=== PATIENT | male | born 1960 | race Caucasian/White ===

== ENCOUNTER 2018-12-23 18:02 | Emergency (ER) | payer BC ==
[~2018-12-23] VITALS: Ht 170.2 cm; Wt 65.8 kg
[~2018-12-23 18:02] MED LIST: NORCO 5-325 TA1 EACH PO; NORFLEX100 MG PO; SYNTHROID100 MCG PO; THYROID65 MG PO; VITAMIN B-1100 M1 PO; VITAMIN D1000 UNI1 PO; ZOFRAN 4 MG ORAL4 M1 DIS
[2018-12-23] MEDS ORDERED: VITAMIN B-12500 MCG PO (18:16)
[2018-12-23 18:48] VITALS: BP 95/67
== END 2018-12-23 18:50 | disposition home or self-care (01) ==
LOC: M.ERS 18:02
DX: S51.812A Laceration without foreign body of left forearm, initial encounter (principal); F17.200 Nicotine dependence, unspecified, uncomplicated; K21.9 Gastro-esophageal reflux disease without esophagitis; W26.8XXA Contact with other sharp object(s), not elsewhere classified, initial encounter; Y92.89 Other specified places as the place of occurrence of the external cause; Y99.0 Civilian activity done for income or pay; Y99.8 Other external cause status

== ENCOUNTER → 2020-02-07 | Outpatient (CLI) | payer BC ==
[~2020-02-07] MED LIST changes: +VITAMIN B-12500 MCG PO
== END ==
LOC: M.RAD 16:29
PROVIDERS: ATTEND Internal Medicine
DX: M19.042 Primary osteoarthritis, left hand (principal); M19.041 Primary osteoarthritis, right hand; M79.89 Other specified soft tissue disorders; M19.90 Unspecified osteoarthritis, unspecified site; E03.9 Hypothyroidism, unspecified; F32.5 Major depressive disorder, single episode, in full remission

== ENCOUNTER 2021-05-26 10:58 | Observation (INO) | payer OTHER ==
[~2021-05-26] VITALS: Ht 170.2 cm; Wt 65.8 kg
--- NOTE | ~2021-05-26 | CON ---
[address] [address] CONSULTATION Name: DAVID ROSARIO Room: [address] [place]#: [id number] Admission: 05/26/21 Attend Phys: Raven Barcenas Discharge: Date of : 58 Report #: [id number] THIS REPORT FOR: cc: Warner Vazquez MD, Meng MD Khosla, Parveen K. MD ~ DATE OF CONSULTATION: 05/26/2021 HISTORY OF PRESENT ILLNESS: A 61-year-old male patient who was evaluated by me for an episode, which he said had yesterday. He said he was numb on the right side, even the right ear was numb. The whole right side was numb. Some facial droop was noticed. He thought he was disoriented at that time. Then, he returned back to his baseline. He does not think he had aphasia. He had another episode of disorientation some time ago. I do not think much workup was done at that time. His biggest risk factor is that he is a smoker. REVIEW OF SYSTEMS: Indicates that he has been working for long time and he said that caused a lot of stress. He took some medication long time ago, but does not take any medication at the moment. He takes Aleve for what he described as arthritis. Otherwise, 14-point review of systems was mostly unremarkable. PAST MEDICAL HISTORY: Positive for an episode of disorientation. FAMILY HISTORY: Unremarkable. SOCIAL HISTORY: He smokes about half pack a day. PHYSICAL EXAMINATION: NEUROLOGIC: The patient's examination indicates he is alert and responsive, able to follow simple and complex command. His cranial nerve examination appears unremarkable. His numbness has resolved. Neuromuscular examination is checked for strength, sensation, reflexes and tone is symmetrical. He had no objective numbness anymore. No cerebellar sign. I could not look at the fundus. There is no meningeal sign. VITAL SIGNS: Blood pressure is 135/72, respiration is 16, pulse is 56, and temperature is 97.8. LUNGS: No respiratory difficulty was noticed. SKIN: He has no edema, cyanosis or jaundice. LABORATORY DATA: White count is 6.4. GFR is 76. His cardiac examination is unremarkable. The CT angiogram was reviewed, which showed old disease. MRI does not show any acute stroke. From neurological perspective, his echocardiogram does not show any patent foramen ovale. IMPRESSION AND PLAN: He can be dismissed and [place] [address] CONSULTATION Name: DAVID ROSARIO Room: [address] A[place]ina#: [id number] Admission: 05/26/21 Attend Phys: Raven Barcenas Discharge: Date of : 58 Report #: [id number] is also assuming that he does not show any atrial fibrillation. He needs to be on aspirin and he needs to be on statin because his LDL is 100. Thank you very much for this referral. By: 1629 1913Ptamara Luna MD /mariangel
[2021-05-26 11:04] VITALS: BP 142/56
[2021-05-26 12:01] LABS: ABSOLUTE BASOPHILS 0.1 thou/uL (0.0-0.2); ABSOLUTE EOSINOPHILS 0.3 thou/uL (0.0-0.7); ABSOLUTE MONOCYTES 0.5 thou/uL (0.0-1.2); ABSOLUTE NEUTROPHILS 3.5 thou/uL (1.6-8.1); BASOPHILS 0.8 %; EOSINOPHILS 5.1 %; HEMATOCRIT 42.8 % (42.0-52.0); HEMOGLOBIN 14.7 gm/dL (14.0-18.0); LYMPHOCYTES 30.9 %; MCH 31.4 pg (26.0-34.0); MCHC 34.3 g/dL (28.0-37.0); MCV 91.5 fL (80.0-100.0); MONOCYTES 8.4 %; MPV 8.3 fl. (7.2-11.1); NUCLEATED RBCS 0 /100WBC; PLATELET COUNT* 175 thou/uL (150-400); POLYS 54.8 %; RBC 4.68 mil/uL (4.50-6.00); RDW-CV 13.9 % (10.5-14.5); WBC 6.4 thou/uL (4.0-11.0)
[2021-05-26 12:04] LABS: ANION GAP 7 mmol/L (7-16); BUN 21 mg/dL (7-18); CALCIUM 8.5 mg/dL (8.5-10.1); CHLORIDE 105 mmol/L (98-107); CO2 28 mmol/L (21-32); GLUCOSE 101 mg/dL (70-99); POTASSIUM 4.1 mmol/L (3.5-5.1); SODIUM 140 mmol/L (136-145)
[2021-05-26 12:07] LABS: APTT 27.8 Seconds (25.0-31.3); INR 1.1; PROTIME 11.5 Seconds (9.20-11.50)
[2021-05-26 12:09] LABS: ALBUMIN 3.6 g/dL (3.4-5.0); ALKALINE PHOSPHATASE 66 U/L (46-116); CHOLESTEROL 159 mg/dL (<200); HDL CHOLESTEROL 48 mg/dL (>40); LDL CHOLESTEROL 100 mg/dL (<100); SGOT 20 U/L (15-37); SGPT 23 U/L (30-65); TC:HDL 3.3 Ratio (Not establshd); TOTAL BILIRUBIN 0.5 mg/dL (<0.1-1.0); TOTAL PROTEIN 6.5 g/dL (6.4-8.2); TRIGLYCERIDE 57 mg/dL (<150); VLDL 11 mg/dL (<40)
--- NOTE | 2021-05-26 12:12 | EKG ---
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: : 1960 Requested By: Daiana Norwood Order Number: [id number] MD: Phoenix Cisneros Measurements Intervals [place] Rate: 51 P: 77 CT: 145 QRS: 88 QRSD: 143 T: 50 QT: 461 QTc: 425 Interpretive Statements Sinus rhythm Ventricular premature complex Right bundle branch block Compared to ECG 09/19/2011 20:50:33 Ventricular premature complex(es) now present Electronically Signed On 05-26-2021 12:11:55 [employer] by Phoenix Cisneros [email or web address] <ELECTRONICALLY SIGNED> By: Phoenix Cisneros MD, [facility] 05/26/21 1211 1149 1149 Phoenix Cisneros MD, [facility] /EPI
[2021-05-26 12:19] LABS: SERUM ASSESSMENT Clear
[2021-05-26 13:57] LABS: ESR (SEDRATE) 1 mm/hr (0-20)
--- NOTE | 2021-05-26 15:41 | NUR ---
MRI QUESTIONAIRRE GIVEN TO PT TO FILL OUT.
[2021-05-26 19:16] VITALS: BP 111/62
[2021-05-26 23:00] VITALS: BP 107/47
[2021-05-27 02:06] LABS: GLYCOHEMOGLOBIN (HGB A1C) 5.6 % (4.8-5.6)
[2021-05-27 04:00] VITALS: BP 108/62
[2021-05-27 08:00] VITALS: BP 103/69
[2021-05-27] MEDS ORDERED: ASA81BEC PO (08:09)
[2021-05-27] MEDS ORDERED: LIPITOR 20 MG T20 M1 PO (10:03)
[2021-05-27 11:30] VITALS: BP 103/69
[2021-05-27 11:35] VITALS: BP 103/69
== END 2021-05-27 11:43 | disposition home or self-care (01) ==
LOC: M.ERS 10:58 → M.TBA-ER 15:27
PROVIDERS: Nurse Practitioner Family; ADMIT Internal Medicine; ATTEND Internal Medicine
DX: R20.2 Paresthesia of skin (principal); Z20.822 Contact with and (suspected) exposure to COVID-19; E03.9 Hypothyroidism, unspecified; I25.10 Atherosclerotic heart disease of native coronary artery without angina pectoris; R79.1 Abnormal coagulation profile; F17.210 Nicotine dependence, cigarettes, uncomplicated; Z79.899 Other long term (current) drug therapy

== ENCOUNTER → 2021-07-24 | Outpatient (CLI) | payer OTHER ==
[~2021-07-24] MED LIST changes: +ASA81BEC PO; +LIPITOR 20 MG T20 M1 PO
== END ==
LOC: M.RAD 09:15
PROVIDERS: ATTEND Internal Medicine
DX: R03.0 Elevated blood-pressure reading, without diagnosis of hypertension (principal); Z87.891 Personal history of nicotine dependence

== ENCOUNTER → 2021-07-28 | Outpatient (CLI) | payer OTHER ==
--- NOTE | 2021-07-28 12:30 | 2DMMODE ---
[place] [address] 2 D/M-MODE ECHOCARDIOGRAM Name: DAVID ROSARIO Room: [facility]#: [id number] Admission: 07/28/21 Attend Phys: Uzair Luna, Discharge: Date of : 58 Date of Service: 07/28/21 1230 Report #: [id number] THIS REPORT FOR: cc: Warner Vazquez MD, Meng MD Liston, Michael J. MD [facility] ~ APPROVED REPORT Study performed: 07/28/2021 11:17:10 EXAM: Comprehensive 2D, Doppler, and color-flow Echocardiogram/ Bubble Study Patient Location: Out-Patient BSA: 1.75 HR: 64 bpm BP: 130/70 mmHg Other Information Study Quality: Good Indications TIA Echo Enhancing Agent Indication: Rule out Shunt Agent(s) / Amount(s) Used: Agitated Saline 10 cc 2D Dimensions IVSd: 7.39 (7-11mm) LVOT Diam: 20.69 (18-24mm) LVDd: 49.04 mm PWd: 10.22 (7-11mm) Ascending Ao: 28.56 (22-36mm) LVDs: 32.38 (25-40mm) Aortic Root: 27.79 mm Volumes Left Atrial Volume (Systole) LA ESV Index: 13.40 mL/m2 Aortic Valve AoV Peak Hilario.: 0.93 m/s AO Peak Gr.: 3.45 mmHg LVOT Max P.01 mmHg AO Mean Gr.: 2.12 mmHg LVOT Mean P.02 mmHg LVOT Max V: 0.71 m/s AO V2 VTI: 18.97 cm LVOT Mean V: 0.47 m/[place] [address] 2 D/M-MODE ECHOCARDIOGRAM Name: DAVID ROSARIO Room: [facility]#: [id number] Admission: 07/28/21 Attend Phys: Uzair Luna, Discharge: Date of : 58 Date of Service: 07/28/21 1230 Report #: [id number] GILMAR (VTI): 2.66 cm2 LVOT V1 VTI: 15.00 cm Mitral Valve E/A Ratio: 1.04 MV Decel. Time: 308.72 ms MV E Max Hilario.: 0.42 m/s MV PHT: 89.53 ms MVA (PHT): 2.46 cm2 TDI E/Lateral E': 4.67 E/Medial E': 6.00 Medial E' Hilario.: 0.07 m/s Lateral E' Hilario.: 0.09 m/s Pulmonary Valve PV Peak Hilario.: 0.66 m/s PV Peak Gr.: 1.76 mmHg Left Ventricle The left ventricle is normal size. There is left ventricular systolic dyssynergy consistent with underlying bundle branch block. Global LV systolic function is preserved. There is normal left ventricular wall thickness. Left ventricular systolic function is normal. LVEF is 50-55%. Grade I - abnormal relaxation pattern. Right Ventricle The right ventricle is normal size. The right ventricular systolic function is normal. Atria The left atrium size is normal. Injection of bubbles documented no interatrial shunt. The right atrium size is normal. Aortic Valve The aortic valve is normal in structure. No aortic regurgitation is present. There is no aortic valvular stenosis. Mitral Valve The mitral valve is normal in structure. There is no mitral valve regurgitation noted. No evidence of mitral valve stenosis. Tricuspid Valve The tricuspid valve is normal in structure. There is no tricuspid valve regurgitation noted. Pulmonic Valve The pulmonary valve is normal in structure. [place] [address] 2 D/M-MODE ECHOCARDIOGRAM Name: DAVID ROSARIO Room: [facility]#: [id number] Admission: 07/28/21 Attend Phys: Uzair Luna, Discharge: Date of : 58 Date of Service: 07/28/21 1230 Report #: [id number] valvular regurgitation. Great Vessels The aortic root is normal in size. IVC is normal in size and collapses >50% with inspiration. Pericardium There is no pericardial effusion. <Conclusion> The left ventricle is normal size. There is normal left ventricular wall thickness. Left ventricular systolic function is normal. LVEF is 50-55%. Grade I - abnormal relaxation pattern. There is left ventricular systolic dyssynergy consistent with underlying bundle branch block. Global LV systolic function is preserved. IVC is normal in size and collapses >50% with inspiration. Injection of bubbles documented no interatrial shunt. <ELECTRONICALLY SIGNED> By: Juancarlos Diallo MD, FACC 07/28/21 1230 1230 1230 Juancarlos Diallo MD, FACC /INF
== END ==
LOC: M.CRD 10:00
PROVIDERS: ATTEND Psychiatry & Neurology Neuromuscular Medicine
DX: G45.9 Transient cerebral ischemic attack, unspecified (principal)